=== PATIENT | male | born 1960 | race Two or more races ===

== ENCOUNTER → 2024-02-23 | Outpatient (BNVA) | payer BC, SELFPAY | END | disposition home or self-care (01) | PROVIDERS: PCP Physician Assistant; Referring Provider Physician Assistant; Visit Provider Urology | DX: N40.1 Benign prostatic hyperplasia with lower urinary tract symptoms (principal); N13.8 Other obstructive and reflux uropathy; C61 Malignant neoplasm of prostate; Z98.890 Other specified postprocedural states; I10 Essential (primary) hypertension; Z80.42 Family history of malignant neoplasm of prostate | CPT/HCPCS: 99212; G0463 ==